=== PATIENT | male | born 1970 | race Caucasian/White ===

== ENCOUNTER 2020-12-26 20:35 | Inpatient (IN) | payer OTHER ==
[~2020-12-26] VITALS: Ht 188 cm; Wt 124.8 kg
[2020-12-26] MEDS ORDERED: DILTIAZEM 5 MG/ML, 5ML ONE ×2 (20:59→21:57)
[2020-12-26] MEDS ORDERED: ASPIRIN 81 MG TABLET CHEW PO ONE (21:00)
[2020-12-26] MEDS ORDERED: SODIUM CHLORIDE FLUSH 10ML SYR IVF ONE (21:00)
[2020-12-26] MEDS ORDERED: DILTIAZEM 5 MG/ML, 5ML IVPush ONE ×2 (21:00→22:00)
[2020-12-26 21:11] LABS: BASOPHILS % (AUTO) 1 % (0-1); EOSINOPHILS % (AUTO) 1 % (1-7); LYMPHOCYTES % (AUTO) 16 % (22-44); MEAN CORPUSCULAR HEMOGLOBIN 28.2 pg (27.5-34.5); MEAN CORPUSCULAR HGB CONC 32.6 g/dL (33.2-36.2); MEAN PLATELET VOLUME 9.2 fL (7.4-10.4); MONOCYTES % (AUTO) 7 % (2-9); NEUTROPHILS % (AUTO) 75 % (42-75); PLATELET COUNT 228 x10^3/uL (130-400); RED BLOOD COUNT 4.87 x10^6/uL (4.38-5.82); RED CELL DISTRIBUTION WIDTH 14.1 % (9.4-14.8)
--- NOTE | 2020-12-26 21:11 | NUR ---
INTERMITTENT STABBING CHEST PAIN X A FEW WEEKS PROGRESSED TO CHEST PRESSURE X 2 DAYS. PT IN ROOM ATTAHCED TO ALL MONITORS. CRASH CART AT BEDSIDE AND PADS APPLIED TO PT. PIV PLACED AND CARDIZEM PUSHED. PT HR APPEARS VERY IRRUGLAR ON MONITOR. SLIGHT IMPROVEMENT IN RATE.
[2020-12-26 21:12] LABS: MD NO
[2020-12-26] MEDS ORDERED: ASPIRIN 81 MG TABLET CHEW ONE (21:15)
[2020-12-26 21:22] LABS: ALANINE AMINOTRANSFERASE 83 U/L (12-78); ALBUMIN 3.1 g/dL (3.4-5.0); ANION GAP 7 mmol/L (5-15); CALCIUM 8.6 mg/dL (8.5-10.1); CHLORIDE 110 mmol/L (98-107); CREATININE 0.97 mg/dL (0.7-1.3)
[2020-12-26 21:26] LABS: ALKALINE PHOSPHATASE 100 U/L (45-117); BILIRUBIN,TOTAL 0.4 mg/dL (0.2-1.0); TOTAL PROTEIN 7.4 g/dL (6.4-8.2); TROPONIN I < 0.015 ng/mL (0.000-0.045)
[2020-12-26 21:27] LABS: INTERNATIONAL NORMALIZED RATIO 1.17 (0.93-1.1); PROTHROMBIN TIME 12.5 Seconds (9.6-11.5)
--- NOTE | 2020-12-26 21:28 | NUR ---
PT WITH IMPROVED CHEST PAIN. MED REQUEST TUBED TO LAB FOR CARD DRIP
[2020-12-26] MEDS ORDERED: DILTIAZEM 125 MG in SODIUM CHLORIDE 0.9% 100 ML IV SCH (21:30)
[2020-12-26] MEDS ORDERED: morphine SULFATE 10 MG/ML, 1ML IVPush PRN (22:00)
[2020-12-26] MEDS: DILTIAZEM 125 MG in SODIUM CHLORIDE 0.9% 100 ML IV SCH (22:00)
[2020-12-26] MEDS ORDERED: ACETAMINOPHEN 325 MG TABLET PO PRN (22:00)
[2020-12-26] MEDS ORDERED: NITROGLYCERIN 0.4 MG BOTTLE (25 TABS) SL PRN (22:00)
[2020-12-26] MEDS ORDERED: POLYETHYLENE GLYCOL 17 GM PACKET PO PRN (22:00)
[2020-12-26] MEDS ORDERED: BISACODYL 10 MG SUPP PR PRN (22:00)
[2020-12-26] MEDS ORDERED: ONDANSETRON ODT 4 MG PO PRN (22:00)
[2020-12-26] MEDS ORDERED: SODIUM CHLORIDE 0.9%, 500ML IVBOLUS ONE (22:00)
--- NOTE | 2020-12-26 22:28 | NUR ---
REPORT TO EVELYN RN
[2020-12-26] MEDS ORDERED: APIXABAN 5 MG TABLET ONE (22:36)
[2020-12-26] MEDS ORDERED: APIXABAN 5 MG TABLET PO ONE (23:00)
[2020-12-26 23:05] VITALS: BP 138/99
[2020-12-27 02:14] VITALS: BP 132/89
[2020-12-27 03:33] LABS: ALANINE AMINOTRANSFERASE 72 U/L (12-78); ALBUMIN 2.8 g/dL (3.4-5.0); ANION GAP 4 mmol/L (5-15); CALCIUM 8.1 mg/dL (8.5-10.1); CHLORIDE 110 mmol/L (98-107); CHOLESTEROL, TOTAL 129 mg/dL (140-239); CREATININE 0.72 mg/dL (0.7-1.3)
[2020-12-27 03:37] LABS: ALKALINE PHOSPHATASE 85 U/L (45-117); BILIRUBIN,TOTAL 0.4 mg/dL (0.2-1.0); CHOL/HDL RATIO 4.6; HDL CHOL % 22 % (26-37); HDL CHOLESTEROL (DIRECT) 28 mg/dL (40-60); LDL CHOLESTEROL,CALCULATED 85 mg/dL (54-169); TOTAL PROTEIN 6.7 g/dL (6.4-8.2); TRIGLYCERIDES 82 mg/dL (50-200); TROPONIN I < 0.015 ng/mL (0.000-0.045); VLDL CHOLESTEROL 16 mg/dL (0-25)
[2020-12-27 06:24] LABS: BASOPHILS % (AUTO) 1 % (0-1); EOSINOPHILS % (AUTO) 1 % (1-7); LYMPHOCYTES % (AUTO) 17 % (22-44); MEAN CORPUSCULAR HEMOGLOBIN 27.9 pg (27.5-34.5); MEAN CORPUSCULAR HGB CONC 32.5 g/dL (33.2-36.2); MEAN PLATELET VOLUME 9.5 fL (7.4-10.4); MONOCYTES % (AUTO) 7 % (2-9); NEUTROPHILS % (AUTO) 74 % (42-75); PLATELET COUNT 201 x10^3/uL (130-400); RED BLOOD COUNT 4.59 x10^6/uL (4.38-5.82); RED CELL DISTRIBUTION WIDTH 13.9 % (9.4-14.8)
[2020-12-27 06:27] LABS: MD NO
[2020-12-27 07:30] VITALS: BP 136/101
[2020-12-27] MEDS: NICOTINE 21 MG/24 HR PATCH.TD24 TD SCH (07:41)
[2020-12-27] MEDS: SENNA/DOCUSATE TABLET PO SCH (07:42)
[2020-12-27] MEDS: DILTIAZEM 125 MG in SODIUM CHLORIDE 0.9% 100 ML IV SCH ×2 (08:06→20:21)
[2020-12-27] MEDS ORDERED: APIXABAN 5 MG TABLET PO SCH (09:00)
[2020-12-27 09:08] LABS: TROPONIN I < 0.015 ng/mL (0.000-0.045)
[2020-12-27] MEDS: CARVEDILOL 6.25 MG TABLET PO SCH ×2 (10:11→17:59)
[2020-12-27] MEDS: SODIUM CHLORIDE 0.9% 1,000 ML IV SCH (11:46)
[2020-12-27 13:39] VITALS: BP 130/83
[2020-12-27 19:15] VITALS: BP 141/83
[2020-12-28] MEDS: SODIUM CHLORIDE 0.9% 1,000 ML IV SCH ×2 (01:33→15:13)
[2020-12-28 01:48] VITALS: BP 133/86
[2020-12-28 04:58] LABS: BASOPHILS % (AUTO) 1 % (0-1); EOSINOPHILS % (AUTO) 2 % (1-7); LYMPHOCYTES % (AUTO) 19 % (22-44); MEAN CORPUSCULAR HEMOGLOBIN 27.9 pg (27.5-34.5); MEAN CORPUSCULAR HGB CONC 32.4 g/dL (33.2-36.2); MEAN PLATELET VOLUME 9.2 fL (7.4-10.4); MONOCYTES % (AUTO) 7 % (2-9); NEUTROPHILS % (AUTO) 71 % (42-75); PLATELET COUNT 199 x10^3/uL (130-400); RED BLOOD COUNT 4.57 x10^6/uL (4.38-5.82); RED CELL DISTRIBUTION WIDTH 14.1 % (9.4-14.8)
[2020-12-28 05:02] LABS: MD NO
[2020-12-28] MEDS ORDERED: HEPARIN 5,000 UNITS/ML, 1ML SQ SCH (06:00)
[2020-12-28] MEDS: ASPIRIN 81 MG TABLET EC PO SCH (06:05)
[2020-12-28] MEDS: CARVEDILOL 6.25 MG TABLET PO SCH (06:05)
[2020-12-28 06:06] VITALS: BP 134/86
[2020-12-28 07:12] VITALS: BP 110/82
[2020-12-28] MEDS: SENNA/DOCUSATE TABLET PO SCH (09:00)
[2020-12-28] MEDS: NICOTINE 21 MG/24 HR PATCH.TD24 TD SCH (09:38)
[2020-12-28] MEDS: DILTIAZEM 125 MG in SODIUM CHLORIDE 0.9% 100 ML IV SCH (09:48)
[2020-12-28 12:15] VITALS: BP 132/83
[2020-12-28] MEDS ORDERED: APIXABAN 5 MG TABLET PO SCH (12:30)
[2020-12-28 18:11] VITALS: BP 133/94
[2020-12-28] MEDS: CARVEDILOL 12.5 MG TABLET PO SCH (18:12)
[2020-12-28] MEDS: APIXABAN 5 MG TABLET PO SCH (20:53)
[2020-12-28 20:56] VITALS: BP 137/96
[2020-12-29 01:42] VITALS: BP 131/90
[2020-12-29] MEDS: CARVEDILOL 12.5 MG TABLET PO SCH (04:06)
[2020-12-29 04:08] VITALS: BP 152/82
[2020-12-29] MEDS: ASPIRIN 81 MG TABLET EC PO SCH (07:29)
[2020-12-29] MEDS: SODIUM CHLORIDE 0.9% 1,000 ML IV SCH ×2 (07:29→20:28)
[2020-12-29] MEDS ORDERED: CARVEDILOL 12.5 MG TABLET PO ONE ×2 (08:00→10:00)
[2020-12-29] MEDS: LISINOPRIL 5 MG TABLET PO SCH (08:37)
[2020-12-29] MEDS: APIXABAN 5 MG TABLET PO SCH ×2 (08:37→20:28)
[2020-12-29] MEDS: SENNA/DOCUSATE TABLET PO SCH (08:38)
[2020-12-29] MEDS: NICOTINE 21 MG/24 HR PATCH.TD24 TD SCH (08:40)
[2020-12-29 09:01] VITALS: BP 140/95
[2020-12-29] MEDS ORDERED: DIGOXIN 0.25 MG/ML, 2ML IVPush ONE (10:00)
[2020-12-29] MEDS: DIGOXIN 0.25 MG/ML, 2ML IVPush SCH ×2 (14:03→18:07)
[2020-12-29 15:13] VITALS: BP 131/86
[2020-12-29] MEDS: CARVEDILOL 25 MG TABLET PO SCH (18:06)
[2020-12-29 19:49] VITALS: BP 140/90
[2020-12-30 01:10] VITALS: BP 150/93
[2020-12-30] MEDS: CARVEDILOL 25 MG TABLET PO SCH (05:31)
[2020-12-30] MEDS: ASPIRIN 81 MG TABLET EC PO SCH (05:31)
[2020-12-30 08:17] VITALS: BP 149/90
[2020-12-30] MEDS ORDERED: REGADENOSON 0.4 MG/5 ML SYRINGE ONE (08:40)
[2020-12-30] MEDS: LISINOPRIL 5 MG TABLET PO SCH (08:48)
[2020-12-30] MEDS: APIXABAN 5 MG TABLET PO SCH (08:49)
[2020-12-30] MEDS: NICOTINE 21 MG/24 HR PATCH.TD24 TD SCH (08:50)
[2020-12-30] MEDS: SENNA/DOCUSATE TABLET PO SCH (08:50)
[2020-12-30] MEDS ORDERED: DIGOXIN 0.25 MG TABLET PO SCH (11:30)
[2020-12-30] MEDS: SODIUM CHLORIDE 0.9% 1,000 ML IV SCH (11:57)
[2020-12-30 14:18] VITALS: BP 140/90
[2020-12-30] MEDS ORDERED: CARV25TA12 PO (15:45)
[2020-12-30] MEDS ORDERED: LISI5TAB7 PO (15:45)
[2020-12-30] MEDS ORDERED: DIGO250T3 PO (15:45)
[2020-12-30] MEDS ORDERED: ATOR40TA PO (15:45)
[2020-12-30] MEDS ORDERED: ASPI81TA45 PO (15:45)
[2020-12-30] MEDS ORDERED: APIX5TAB PO (15:45)
[2020-12-30] MEDS ORDERED: SPIR25TA PO (15:45)
[2020-12-31] MEDS ORDERED: SPIRONOLACTONE 25 MG TABLET PO SCH (09:00)
== END 2020-12-30 16:50 | disposition home or self-care (01) | DRG 308 ==
LOC: ED 22:42 → EDIP 22:53 → 5SO 22:59 → DCLOUNGE 12-30 16:26
PROVIDERS: ADMIT Family Medicine; ATTEND Hospitalist
DX: I48.20 Chronic atrial fibrillation, unspecified (principal); I50.23 Acute on chronic systolic (congestive) heart failure; N17.0 Acute kidney failure with tubular necrosis; D68.69 Other thrombophilia; I42.9 Cardiomyopathy, unspecified; D72.829 Elevated white blood cell count, unspecified; E66.9 Obesity, unspecified; Z68.35 Body mass index [BMI] 35.0-35.9, adult; F17.210 Nicotine dependence, cigarettes, uncomplicated; I11.0 Hypertensive heart disease with heart failure; Z79.01 Long term (current) use of anticoagulants; Z82.49 Family history of ischemic heart disease and other diseases of the circulatory system; R79.89 Other specified abnormal findings of blood chemistry; R74.01 Elevation of levels of liver transaminase levels; F15.90 Other stimulant use, unspecified, uncomplicated; G47.30 Sleep apnea, unspecified
CPT/HCPCS: 36415; 71045; 78452; 80053; 80061; 83735; 84443; 84484; 85025; 85610; 85730; 93005; 93017; 93306; 96374; 96376; 99291; G0378; J1644; J2785; A9502; J1160; J7030; J7040